=== PATIENT | female | born 1990 | race Caucasian/White ===

== ENCOUNTER 2016-08-04 13:21 | Emergency (ER) | payer OTHER ==
[2016-08-04] MEDS ORDERED: SODIUM CHLORIDE 0.9% 1,000 ML ONE (14:33)
== END 2016-08-04 18:36 | disposition home or self-care (01) ==
LOC: EDBD 13:21 → ER 13:21
DX: O02.1 Missed abortion (principal)
CPT/HCPCS: 36415; 76817; 80053; 81003; 83690; 84702; 85025; 86901; 93005; 96360